=== PATIENT | female | born 1990 | race African-American/Black ===

== ENCOUNTER 2016-10-11 17:30 | Emergency (ER) | payer SELFPAY ==
[~2016-10-11] VITALS: Ht 157.5 cm; Wt 65.0 kg
[2016-10-11 17:32] VITALS: BP 111/75; PULSE 74; RESP 16; TEMP 98; O2SAT 100
[2016-10-11] MEDS ORDERED: ONDANSETRON ODT 4 MG TAB PO/SL ONE (18:00)
--- NOTE | 2016-10-11 18:00 | PD ---
HPI Chief Complaint: GI Complaint Time Seen by Provider: 17:57 Travel History International Travel<30 days: No Contact w/Intl Traveler<30days: No Traveled to known affect area: No History of Present Illness HPI Patient is a 26-year-old female presenting to the emergency department for evaluation of nausea, vomiting, diarrhea. Patient states her symptoms started yesterday, she denies any fever, chills, abdominal pain, chest pain, headache, nasal congestion. She states that she has vomited 4 times today and has had 2 loose bowel movements. Additionally patient states that her last menstrual cycle was at the end of April. Patient was on Depo-Provera until March. From March to April she had fairly consistent menstrual cycle and then she has not had one since that time. Patient has been sexually active, there is a chance that she could be . Patient denies any sick contacts. PFSH Past Medical History Medical History: Denies Significant Hx ?: Unknown LMP: 05/2016 : 5 Para: 4 Past Surgical History Surgical History: No Previous Surgery Social History Alcohol Use: No Tobacco Use: Yes Substance Use: No Allergies-Medications (Allergen,Severity, Reaction): Coded Allergies: No Known Allergies (Unverified , 10/11/16) Reported Meds & Prescriptions Reported Meds & Active Scripts Active Plus Iron 29-1 mg ( Vit-Iron Carbonyl) 1 Tab Tab 1 Tab PO DAILY Keflex (Cephalexin) 500 Mg Cap 500 Mg PO Q6H 7 Days Review of Systems Except as stated in HPI: all other systems reviewed are Neg Gastrointestinal: Positive: Nausea, Vomiting, Diarrhea Physical Exam Narrative GENERAL: Well-appearing, well-developed, alert female. Resting comfortably in no acute distress. SKIN: Warm and dry. HEAD: Atraumatic. Normocephalic. EYES: Pupils equal and round. No scleral icterus. No injection or drainage. ENT: No nasal bleeding or discharge. Mucous membranes pink and moist. NECK: Trachea midline. No JVD. CARDIOVASCULAR: Regular rate and rhythm. No murmur appreciated. RESPIRATORY: No accessory muscle use. Clear to auscultation. Breath sounds equal bilaterally. GASTROINTESTINAL: Abdomen soft, non-tender, nondistended. Hepatic and splenic margins not palpable. Positive bowel sounds, no rebound, no guarding. MUSCULOSKELETAL: No obvious deformities. No clubbing. No cyanosis. No edema. NEUROLOGICAL: Awake and alert. No obvious cranial nerve deficits. Motor grossly within normal limits. Normal speech. PSYCHIATRIC: Appropriate mood and affect; insight and judgment normal. Data Data Last Documented VS Vital Signs Date Time Temp Pulse Resp B/P Pulse Ox O2 Delivery O2 Flow Rate FiO2 10/11/16 17:32 98.0 74 16 111/75 100 Orders Complete Blood Count With Diff (10/11/16 17:56) Comprehensive Metabolic Panel (10/11/16 17:56) Urinalysis - C+S If Indicated (10/11/16 17:56) Lipase (10/11/16 17:56) Ondansetron Odt (Zofran Odt) (10/11/16 18:00) Ed Urine Pregnancytest Poc (10/11/16 17:56) Beta Hcg (Quant/Titer) (10/11/16 18:00) Urine Culture (10/11/16 18:00) Labs Laboratory Tests Test 10/11/16 18:00 White Blood Count 7.4 TH/MM3 Red Blood Count 4.28 MIL/MM3 Hemoglobin 10.0 GM/DL Hematocrit 31.3 % Mean Corpuscular Volume 73.0 FL Mean Corpuscular Hemoglobin 23.4 PG Mean Corpuscular Hemoglobin 32.1 % Concent Red Cell Distribution Width 19.2 % Platelet Count 196 TH/MM3 Mean Platelet Volume 9.1 FL Neutrophils (%) (Auto) 56.9 % Lymphocytes (%) (Auto) 30.0 % Monocytes (%) (Auto) 11.0 % Eosinophils (%) (Auto) 1.8 % Basophils (%) (Auto) 0.3 % Neutrophils # (Auto) 4.2 TH/MM3 Lymphocytes # (Auto) 2.2 TH/MM3 Monocytes # (Auto) 0.8 TH/MM3 Eosinophils # (Auto) 0.1 TH/MM3 Basophils # (Auto) 0.0 TH/MM3 CBC Comment AUTO DIFF Differential Comment AUTO DIFF CONFIRMED Platelet Estimate NORMAL Platelet Morphology Comment NORMAL Ovalocytes 1+ Urine Color YELLOW Urine Turbidity HAZY Urine pH 7.0 Urine Specific [place] 1.021 Urine Protein TRACE mg/dL Urine Glucose (UA) NEG mg/dL Urine Ketones NEG mg/dL Urine Occult Blood NEG Urine Nitrite NEG Urine Bilirubin NEG Urine Urobilinogen LESS THAN 2.0 MG/DL Urine Leukocyte Esterase MOD Urine RBC 2 /hpf Urine WBC 20 /hpf Urine Squamous Epithelial 3 /hpf Cells Urine Bacteria OCC /hpf Urine Mucus MOD /lpf Microscopic Urinalysis Comment CULTURE INDICATED Sodium Level 138 MEQ/L Potassium Level 3.6 MEQ/L Chloride Level 106 MEQ/L Carbon Dioxide Level 24.4 MEQ/L Anion Gap 8 MEQ/L Blood Urea Nitrogen 7 MG/DL Creatinine 0.54 MG/DL Estimat Glomerular Filtration 168 ML/MIN Rate Random Glucose 84 MG/DL Calcium Level 8.5 MG/DL Total Bilirubin 0.2 MG/DL Aspartate Amino Transf 13 U/L (AST/SGOT) Alanine Aminotransferase 13 U/L (ALT/SGPT) Alkaline Phosphatase 74 U/L Total Protein 6.7 GM/DL Albumin 2.8 GM/DL Lipase 192 U/L [facility] Medical Decision Making Medical Screen Exam Complete: Yes Emergency Medical Condition: Yes Interpretation(s) Vital Signs Date Time Temp Pulse Resp B/P Pulse Ox O2 Delivery O2 Flow Rate FiO2 10/11/16 17:32 98.0 74 16 111/75 100 Differential Diagnosis Gastroenteritis versus versus malingering versus obstruction versus other Narrative Course Patient is a 26-year-old female presenting to the emergency department for evaluation of nausea and vomiting. Patient to loose bowel movements today. Patient reported not having a menstrual cycle since April. A [id number] test was positive, hCG level, chemistry, CBC, UA ordered. Bedside ultrasound shows an intrauterine with heart tones and movement. Fetus appears to be greater than 12 weeks in gestation, hCG level is still pending. Patient has not had any further nausea or vomiting while in the emergency department after administration of Zofran. Patient has tolerated by mouth challenge. Discussed with on-call OB. Patient needs to follow up with [facility] as outpatient for routine care. Patient was encouraged to return to emergency department for any new or worsening symptoms, she was encouraged to take vitamins. Patient verbalized understanding of instructions. She is stable for discharge. 2039-that the machine that runs the hCG test is down, there is an indeterminate time that I will be this way. Patient be discharged home, she is encouraged to follow up with medical records or return to emergency department to obtain her hCG results. Initially patient was encouraged to come back to emergency department any new or worsening symptoms. Patient is stable for discharge. Diagnosis Primary Impression: Urinary tract infection Qualified Code: N39.0 - Urinary tract infection without hematuria, site unspecified Additional Impressions: Intrauterine Nausea and vomiting during Referrals: [facility] 1 week Patient Instructions: General Instructions, Nausea and Vomiting in ( ED), Urinary Tract Infection in (ED) Additional Instructions: You need to establish with an entry level account executive for routine care Take vitamins as prescribed Complete full course of antibiotics as prescribed Maintain adequate fluid intake Return to emergency department for any new or worsening symptoms Med/Other Pt SpecificInfo: Prescription(s) given Scripts Vit-Iron Carbonyl ( Plus Iron 29-1 mg)1 Tab Tab1 Tab PO DAILY #30 TAB Ref 0 Prov:Светлана Zapata 10/11/16 Cephalexin (Keflex)500 Mg Kxs176 Mg PO Q6H 7 Days Ref 0 Prov:Светлана Zapata 10/11/16 Disposition: 01 DISCHARGE HOME Condition: Stable Светлана Zapata Oct 11, 2016 18:00
[2016-10-11 18:22] LABS: AUTOMATED NEUTROPHIL # 4.2 TH/MM3 (1.8-7.7); BASOPHIL % 0.3 % (0.0-2.0); EOSINOPHIL # 0.1 TH/MM3 (0-0.4); EOSINOPHIL % 1.8 % (0.0-4.0); HEMATOCRIT 31.3 % (35.0-46.0); LYMPHOCYTE # 2.2 TH/MM3 (1.0-4.8); MEAN CORPUSCULAR HEMOGLOBIN 23.4 PG (27.0-34.0); MEAN CORPUSCULAR HGB CONC 32.1 % (32.0-36.0); NEUT % 56.9 % (16.0-70.0); PLATELET COUNT 196 TH/MM3 (150-450); RED BLOOD COUNT 4.28 MIL/MM3 (4.00-5.30); RED CELL DISTRIBUTION WIDTH 19.2 % (11.6-17.2); WHITE BLOOD COUNT 7.4 TH/MM3 (4.0-11.0)
[2016-10-11 18:37] LABS: BACTERIA, URINE OCC /hpf; BLOOD, URINE NEG (NEG); COMMENT (UR) CULTURE INDICATED; CULTURE IF INDICATED CULTURE INDICATED; GLUCOSE,URINE NEG (NEG); KETONE, URINE NEG (NEG); MUCUS URINE MOD /lpf (OCC); NITRITE,URINE NEG (NEG); SQUAMOUS EPITHELIAL CELL URINE 3 /hpf (0-5); URINE COLOR YELLOW (YELLW/STRAW)
[2016-10-11 18:39] LABS: HEMO FLAGS AUTO DIFF
[2016-10-11 18:40] LABS: ANION GAP 8 MEQ/L (5-15); AST (GOT) 13 U/L (15-37); BICARBONATE 24.4 MEQ/L (21.0-32.0); BLOOD UREA NITROGEN 7 MG/DL (7-18); CHLORIDE 106 MEQ/L (98-107); GLOMERULAR FILTRATION RATE 168 ML/MIN (>89); POTASSIUM 3.6 MEQ/L (3.5-5.1); SODIUM (NA) 138 MEQ/L (136-145)
[2016-10-11 18:43] LABS: ALKALINE PHOSPHATASE 74 U/L (45-117); ALT (GPT) 13 U/L (10-53); TOTAL BILIRUBIN ADULT 0.2 MG/DL (0.2-1.0)
[2016-10-11 19:01] LABS: OVALOCYTES 1+ (NORMAL); PLATELET ESTIMATE SMEAR NORMAL (NORMAL); PLATELET MORPHOLOGY NORMAL (NORMAL); SCAN/DIFF AUTO DIFF CONFIRMED
[2016-10-11] MEDS ORDERED: CEPH-460 PO (19:07)
[2016-10-11] MEDS ORDERED: PREN29TA PO (19:07)
[2016-10-11 22:25] LABS: BETA HCG QUANT 14063 MIU/ML (0-5)
== END 2016-10-11 21:09 | disposition home or self-care (01) ==
LOC: NETRI 17:30 → NEPB 21:09
DX: O23.40 Unspecified infection of urinary tract in pregnancy, unspecified trimester (principal); O21.0 Mild hyperemesis gravidarum; B96.1 Klebsiella pneumoniae [K. pneumoniae] as the cause of diseases classified elsewhere
CPT/HCPCS: 80053; 81001; 83690; 84702; 84703; 85025; 87077; 87086; 87186; 99284

== ENCOUNTER 2017-08-02 10:05 | Emergency (ER) | payer OTHER ==
[~2017-08-02] VITALS: Ht 157.5 cm; Wt 72.0 kg
[~2017-08-02 10:05] MED LIST: CEPH-460 PO; PREN29TA PO
[2017-08-02 10:07] VITALS: BP 117/66; PULSE 88; RESP 14; TEMP 98.4; O2SAT 98
[2017-08-02] MEDS ORDERED: ACETAMINOPHEN 325 MG TAB PO ONE (10:30)
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
[2017-08-02] MEDS ORDERED: DEXAMETHASONE SOD PHOS 20 MG/5 ML VIAL IM ONE (11:15)
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
[2017-08-02] MEDS ORDERED: DEXAMETHASONE SOD PHOS 20 MG/5 ML VIAL ONE (11:36)
[2017-08-02 11:40] VITALS: RESP 16
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
[2017-08-02 13:40] VITALS: BP 108/77; TEMP 97.8
== END 2017-08-02 13:40 | disposition home or self-care (01) ==
LOC: NEPD 10:05
DX: S16.1XXA Strain of muscle, fascia and tendon at neck level, initial encounter (principal); M54.6 Pain in thoracic spine; R51 Headache; Z72.0 Tobacco use; V49.49XA Driver injured in collision with other motor vehicles in traffic accident, initial encounter
CPT/HCPCS: 70450; 72072; 72125; 84703; 96372; 99285; J1100

== ENCOUNTER 2018-01-30 02:36 | Emergency (ER) | payer SELFPAY ==
[~2018-01-30] VITALS: Ht 157.5 cm; Wt 80.0 kg
[2018-01-30 02:51] VITALS: BP 123/64; PULSE 95; RESP 18; TEMP 98.7; O2SAT 100
[2018-01-30] MEDS ORDERED: SODIUM CHLORIDE 0.9% FLUSH 10 ML FLUSH IV FLUSH PRN (04:00)
[2018-01-30] MEDS ORDERED: SODIUM CHLOR 0.9% 1000 ML INJ 1,000 ML IV SCH ×2 (04:00→09:30)
[2018-01-30 04:28] LABS: AUTOMATED NEUTROPHIL # 5.9 TH/MM3 (1.8-7.7); BASOPHIL # 0.1 TH/MM3 (0-0.2); BASOPHIL % 1.4 % (0.0-2.0); EOSINOPHIL # 0.2 TH/MM3 (0-0.4); EOSINOPHIL % 2.9 % (0.0-4.0); HEMATOCRIT 32.3 % (35.0-46.0); HEMOGLOBIN 10.7 GM/DL (11.6-15.3); LYMPH % 16.1 % (9.0-44.0); LYMPHOCYTE # 1.4 TH/MM3 (1.0-4.8); MEAN CELL VOLUME 80.5 FL (80.0-100.0); MEAN CORPUSCULAR HEMOGLOBIN 26.5 PG (27.0-34.0); MEAN PLATELET VOLUME 8.9 FL (7.0-11.0); MONO % 9.5 % (0.0-8.0); MONOCYTE # 0.8 TH/MM3 (0-0.9); NEUT % 70.1 % (16.0-70.0); PLATELET COUNT 248 TH/MM3 (150-450); RED BLOOD COUNT 4.02 MIL/MM3 (4.00-5.30); RED CELL DISTRIBUTION WIDTH 14.2 % (11.6-17.2); WHITE BLOOD COUNT 8.4 TH/MM3 (4.0-11.0)
[2018-01-30 04:37] LABS: ALBUMIN 3.9 GM/DL (3.4-5.0); AST (GOT) 17 U/L (15-37); BICARBONATE 29.7 MEQ/L (21.0-32.0); BLOOD UREA NITROGEN 13 MG/DL (7-18); CALCIUM 8.8 MG/DL (8.5-10.1); CHLORIDE 105 MEQ/L (98-107); CREATININE 0.63 MG/DL (0.50-1.00); GLOMERULAR FILTRATION RATE 138 ML/MIN (>89); GLUCOSE,RANDOM 97 MG/DL (74-106); SODIUM (NA) 141 MEQ/L (136-145)
[2018-01-30 04:38] LABS: ALT (GPT) 21 U/L (10-53); PROTHROMBIN TIME - PATIENT 10.5 SEC (9.8-11.6)
[2018-01-30 04:40] LABS: ALKALINE PHOSPHATASE 110 U/L (45-117); TOTAL BILIRUBIN ADULT 0.3 MG/DL (0.2-1.0); TOTAL PROTEIN 7.4 GM/DL (6.4-8.2)
--- NOTE | 2018-01-30 04:55 | PD ---
HPI Chief Complaint: Abdominal Pain Time Seen by Provider: 04:16 Travel History International Travel<30 days: No Contact w/Intl Traveler<30days: No Traveled to known affect area: No History of Present Illness HPI Patient is a 28-year-old female who presents the emergency room with complaints of abdominal pain. Patient reports that for the past 3 days, she has had left lower quadrant abdominal pain. Patient reports that she just finished her menstrual cycle which lasted 5 days. Reports that she has had continuous left lower quadrant pain, patient reports concern for a possible ovarian cysts as she has had this in the past. Patient denies any vaginal discharge, denies any fever chills, denies any nausea or vomiting. PFSH Past Medical History Anemia: Yes Diminished Hearing: No Genitourinary: Yes (uti) Reproductive: Yes (ovarian cyst) Tetanus Vaccination: Unknown Influenza Vaccination: No ?: Not LMP: 01/26/2018 : 6 Para: 6 Past Surgical History Surgical History: No Previous Surgery Social History Alcohol Use: Yes (ocassionally) Tobacco Use: Yes (10 cigarrettes per week) Substance Use: No Allergies-Medications (Allergen,Severity, Reaction): Coded Allergies: No Known Allergies (Unverified Adverse Reaction, Unknown, 01/30/18) Reported Meds & Prescriptions Reported Meds & Active Scripts Active No Active Prescriptions or Reported Medications Review of Systems General / Constitutional: No: Fever Eyes: No: Visual changes HENT: No: Headaches Cardiovascular: No: Chest Pain or Discomfort Respiratory: No: Shortness of Breath Gastrointestinal: Positive: Abdominal Pain, No: Nausea, Vomiting, Diarrhea Genitourinary: No: Urgency, Frequency, Dysuria, Discharge, Vaginal Bleeding Musculoskeletal: No: Pain Skin: No Rash Neurologic: No: Weakness Psychiatric: No: Depression Endocrine: No: Polydipsia Hematologic/Lymphatic: No: Easy Bruising Physical Exam Narrative GENERAL: Mild distress SKIN: Focused skin assessment warm/dry. HEAD: Atraumatic. Normocephalic. EYES: Pupils equal and round. No scleral icterus. No injection or drainage. ENT: No nasal bleeding or discharge. Mucous membranes pink and moist. NECK: Trachea midline. No JVD. CARDIOVASCULAR: Regular rate and rhythm. No murmur appreciated. RESPIRATORY: No accessory muscle use. Clear to auscultation. Breath sounds equal bilaterally. GASTROINTESTINAL: Abdomen soft, mild tenderness to llq with no rebound or guarding on exam, nondistended. Hepatic and splenic margins not palpable. MUSCULOSKELETAL: No obvious deformities. No clubbing. No cyanosis. No edema. NEUROLOGICAL: Awake and alert. No obvious cranial nerve deficits. Motor grossly within normal limits. Normal speech. PSYCHIATRIC: Appropriate mood and affect; insight and judgment normal. Data Data Last Documented VS Vital Signs Date Time Temp Pulse Resp B/P (MAP) Pulse Ox O2 Delivery O2 Flow Rate FiO2 01/30/18 02:51 98.7 95 18 123/64 (83) 100 Orders Orders Complete Blood Count With Diff (01/30/18 04:00) Comprehensive Metabolic Panel (01/30/18 04:00) Lipase (01/30/18 04:00) Prothrombin Time / Inr (Pt) (01/30/18 04:00) Act Partial Throm Time (Ptt) (01/30/18 04:00) Urinalysis - C+S If Indicated (01/30/18 04:00) Iv Access Insert/Monitor (01/30/18 04:00) Ecg Monitoring (01/30/18 04:00) Oximetry (01/30/18 04:00) Sodium Chlor 0.9% 1000 Ml Inj (Ns 1000 M (01/30/18 04:00) Sodium Chloride 0.9% Flush (Ns Flush) (01/30/18 04:00) Ed Urine Pregnancytest Poc (01/30/18 04:00) Us Pelvis (Ques Pr/Ect)W Trans (01/30/18 ) Beta Hcg (Quant/Titer) (01/30/18 04:12) Complete Rh (01/30/18 06:26) Type And Screen (01/30/18 06:26) Labs Laboratory Tests Test 01/30/18 04:12 01/30/18 06:31 White Blood Count 8.4 TH/MM3 Red Blood Count 4.02 MIL/MM3 Hemoglobin 10.7 GM/DL Hematocrit 32.3 % Mean Corpuscular Volume 80.5 FL Mean Corpuscular Hemoglobin 26.5 PG Mean Corpuscular Hemoglobin Concent 33.0 % Red Cell Distribution Width 14.2 % Platelet Count 248 TH/MM3 Mean Platelet Volume 8.9 FL Neutrophils (%) (Auto) 70.1 % Lymphocytes (%) (Auto) 16.1 % Monocytes (%) (Auto) 9.5 % Eosinophils (%) (Auto) 2.9 % Basophils (%) (Auto) 1.4 % Neutrophils # (Auto) 5.9 TH/MM3 Lymphocytes # (Auto) 1.4 TH/MM3 Monocytes # (Auto) 0.8 TH/MM3 Eosinophils # (Auto) 0.2 TH/MM3 Basophils # (Auto) 0.1 TH/MM3 CBC Comment DIFF FINAL Differential Comment Prothrombin Time 10.5 SEC Prothromb Time International Ratio 1.0 RATIO Activated Partial Thromboplast Time 26.3 SEC Blood Urea Nitrogen 13 MG/DL Creatinine 0.63 MG/DL Random Glucose 97 MG/DL Total Protein 7.4 GM/DL Albumin 3.9 GM/DL Calcium Level 8.8 MG/DL Alkaline Phosphatase 110 U/L Aspartate Amino Transf (AST/SGOT) 17 U/L Alanine Aminotransferase (ALT/SGPT) 21 U/L Total Bilirubin 0.3 MG/DL Sodium Level 141 MEQ/L Potassium Level 3.5 MEQ/L Chloride Level 105 MEQ/L Carbon Dioxide Level 29.7 MEQ/L Anion Gap 6 MEQ/L Estimat Glomerular Filtration Rate 138 ML/MIN Lipase 139 U/L Human Chorionic Gonadotropin, Quant 130 MIU/ML MDM Medical Decision Making Medical Screen Exam Complete: Yes Emergency Medical Condition: Yes Medical Record Reviewed: Yes Interpretation(s) Vital Signs Date Time Temp Pulse Resp B/P (MAP) Pulse Ox O2 Delivery O2 Flow Rate FiO2 01/30/18 02:51 98.7 95 18 123/64 (83) 100 Differential Diagnosis , ectopic , UTI, ovarian cyst, cervicitis Narrative Course During the course of the patients emergency department visit, the patients history, examination, and differential diagnosis were reviewed with the patient. The patient was placed on a case monitor with oximetry and frequent blood pressure monitoring. The patient had an IV access obtained and blood work sent for analysis. The patient was initially provided IV fluids. Patient's urine test was positive -hCG quant was sent. Patient with a positive hCG quant, patient reports that she just completed 5 days of her period, patient unsure how far along she is. I just discussed with patient possibilities of ectopic given her left lower quadrant abdominal pain. A pelvic ultrasound was ordered. The patients laboratory studies were reviewed and remarkable for. Laboratory Tests Test 01/30/18 04:12 White Blood Count 8.4 TH/MM3 (4.0-11.0) Red Blood Count 4.02 MIL/MM3 (4.00-5.30) Hemoglobin 10.7 GM/DL (11.6-15.3) Hematocrit 32.3 % (35.0-46.0) Mean Corpuscular Volume 80.5 FL (80.0-100.0) Mean Corpuscular Hemoglobin 26.5 PG (27.0-34.0) Mean Corpuscular Hemoglobin Concent 33.0 % (32.0-36.0) Red Cell Distribution Width 14.2 % (11.6-17.2) Platelet Count 248 TH/MM3 (150-450) Mean Platelet Volume 8.9 FL (7.0-11.0) Neutrophils (%) (Auto) 70.1 % (16.0-70.0) Lymphocytes (%) (Auto) 16.1 % (9.0-44.0) Monocytes (%) (Auto) 9.5 % (0.0-8.0) Eosinophils (%) (Auto) 2.9 % (0.0-4.0) Basophils (%) (Auto) 1.4 % (0.0-2.0) Neutrophils # (Auto) 5.9 TH/MM3 (1.8-7.7) Lymphocytes # (Auto) 1.4 TH/MM3 (1.0-4.8) Monocytes # (Auto) 0.8 TH/MM3 (0-0.9) Eosinophils # (Auto) 0.2 TH/MM3 (0-0.4) Basophils # (Auto) 0.1 TH/MM3 (0-0.2) CBC Comment DIFF FINAL Differential Comment Prothrombin Time 10.5 SEC (9.8-11.6) Prothromb Time International Ratio 1.0 RATIO Activated Partial Thromboplast Time 26.3 SEC (24.3-30.1) Blood Urea Nitrogen 13 MG/DL (7-18) Creatinine 0.63 MG/DL (0.50-1.00) Random Glucose 97 MG/DL (74-106) Total Protein 7.4 GM/DL (6.4-8.2) Albumin 3.9 GM/DL (3.4-5.0) Calcium Level 8.8 MG/DL (8.5-10.1) Alkaline Phosphatase 110 U/L (45-117) Aspartate Amino Transf (AST/SGOT) 17 U/L (15-37) Alanine Aminotransferase (ALT/SGPT) 21 U/L (10-53) Total Bilirubin 0.3 MG/DL (0.2-1.0) Sodium Level 141 MEQ/L (136-145) Potassium Level 3.5 MEQ/L (3.5-5.1) Chloride Level 105 MEQ/L (98-107) Carbon Dioxide Level 29.7 MEQ/L (21.0-32.0) Anion Gap 6 MEQ/L (5-15) Estimat Glomerular Filtration Rate 138 ML/MIN (>89) Lipase 139 U/L (73-393) Human Chorionic Gonadotropin, Quant 130 MIU/ML (0-5) Patient's hCG quant is 130, discussed my concerns for possible miscarriage given her bleeding, understands need to trend her HCG quant as she could have early and ectopic cannot be ruled out. patient pending pelvic US Patient signed out to care of oncoming physician at change of shift Diagnosis Primary Impression: Miscarriage, threatened, early Patient Instructions: General Instructions Additional Instructions: Please provide patient with a copy of their lab work and studies at discharge* * Please follow up with your primary care doctor in 2-3 days Return to the ER if symptoms worsen or progress Return to the ER as needed Please have your HCG quant repeated in 48 hours Please call your tie buyer first thing in the morning for earliest follow up Scripts No Active Prescriptions or Reported Meds Marybeth Sanford DO Jan 30, 2018 04:55
--- NOTE | 2018-01-30 06:56 | PD ---
Physical Exam Date Seen by Provider: Jan 30, 2018 Time Seen by Provider: 06:55 Narrative The patient is a 28-year-old female who was initially evaluated by the previous physician. Please refer to the initial history, physical, diagnostic evaluation , and treatment modality plan. The patient was signed out at 7 AM with ultrasound and Rh pending for left lower quadrant abdominal pain and with history of ovarian cyst. Data Data Last Documented VS Vital Signs Date Time Temp Pulse Resp B/P (MAP) Pulse Ox O2 Delivery O2 Flow Rate FiO2 01/30/18 07:35 78 16 91/55 (67) 99 Room Air 01/30/18 02:51 98.7 Orders Orders Complete Blood Count With Diff (01/30/18 04:00) Comprehensive Metabolic Panel (01/30/18 04:00) Lipase (01/30/18 04:00) Prothrombin Time / Inr (Pt) (01/30/18 04:00) Act Partial Throm Time (Ptt) (01/30/18 04:00) Urinalysis - C+S If Indicated (01/30/18 04:00) Iv Access Insert/Monitor (01/30/18 04:00) Ecg Monitoring (01/30/18 04:00) Oximetry (01/30/18 04:00) Sodium Chlor 0.9% 1000 Ml Inj (Ns 1000 M (01/30/18 04:00) Sodium Chloride 0.9% Flush (Ns Flush) (01/30/18 04:00) Ed Urine Pregnancytest Poc (01/30/18 04:00) Us Pelvis (Ques Pr/Ect)W Trans (01/30/18 ) Beta Hcg (Quant/Titer) (01/30/18 04:12) Type And Screen (01/30/18 06:26) Urine Culture (01/30/18 06:31) NPO (01/30/18 09:17) Sodium Chlor 0.9% 1000 Ml Inj (Ns 1000 M (01/30/18 09:30) Morphine Inj (Morphine Inj) (01/30/18 10:30) Labs Laboratory Tests Test 01/30/18 04:12 01/30/18 06:31 White Blood Count 8.4 TH/MM3 Red Blood Count 4.02 MIL/MM3 Hemoglobin 10.7 GM/DL Hematocrit 32.3 % Mean Corpuscular Volume 80.5 FL Mean Corpuscular Hemoglobin 26.5 PG Mean Corpuscular Hemoglobin Concent 33.0 % Red Cell Distribution Width 14.2 % Platelet Count 248 TH/MM3 Mean Platelet Volume 8.9 FL Neutrophils (%) (Auto) 70.1 % Lymphocytes (%) (Auto) 16.1 % Monocytes (%) (Auto) 9.5 % Eosinophils (%) (Auto) 2.9 % Basophils (%) (Auto) 1.4 % Neutrophils # (Auto) 5.9 TH/MM3 Lymphocytes # (Auto) 1.4 TH/MM3 Monocytes # (Auto) 0.8 TH/MM3 Eosinophils # (Auto) 0.2 TH/MM3 Basophils # (Auto) 0.1 TH/MM3 CBC Comment DIFF FINAL Differential Comment Prothrombin Time 10.5 SEC Prothromb Time International Ratio 1.0 RATIO Activated Partial Thromboplast Time 26.3 SEC Blood Urea Nitrogen 13 MG/DL Creatinine 0.63 MG/DL Random Glucose 97 MG/DL Total Protein 7.4 GM/DL Albumin 3.9 GM/DL Calcium Level 8.8 MG/DL Alkaline Phosphatase 110 U/L Aspartate Amino Transf (AST/SGOT) 17 U/L Alanine Aminotransferase (ALT/SGPT) 21 U/L Total Bilirubin 0.3 MG/DL Sodium Level 141 MEQ/L Potassium Level 3.5 MEQ/L Chloride Level 105 MEQ/L Carbon Dioxide Level 29.7 MEQ/L Anion Gap 6 MEQ/L Estimat Glomerular Filtration Rate 138 ML/MIN Lipase 139 U/L Human Chorionic Gonadotropin, Quant 130 MIU/ML Urine Color YELLOW Urine Turbidity HAZY Urine pH 7.0 Urine Specific [place] 1.029 Urine Protein TRACE mg/dL Urine Glucose (UA) NEG mg/dL Urine Ketones NEG mg/dL Urine Occult Blood SMALL Urine Nitrite NEG Urine Bilirubin NEG Urine Urobilinogen 2.0 MG/DL Urine Leukocyte Esterase TRACE Urine RBC 5 /hpf Urine WBC 8 /hpf Urine Squamous Epithelial Cells <1 /hpf Urine Bacteria MANY /hpf Urine Mucus FEW /lpf Microscopic Urinalysis Comment CULTURE INDICATED MDM Medical Record Reviewed: Yes Supervised Visit with GEORGINA: No Interpretation(s) Vital Signs Date Time Temp Pulse Resp B/P (MAP) Pulse Ox O2 Delivery O2 Flow Rate FiO2 01/30/18 07:35 78 16 91/55 (67) 99 Room Air 01/30/18 02:51 98.7 95 18 123/64 (83) 100 Laboratory Tests Test 01/30/18 04:12 01/30/18 06:31 White Blood Count 8.4 TH/MM3 Red Blood Count 4.02 MIL/MM3 Hemoglobin 10.7 GM/DL Hematocrit 32.3 % Mean Corpuscular Volume 80.5 FL Mean Corpuscular Hemoglobin 26.5 PG Mean Corpuscular Hemoglobin Concent 33.0 % Red Cell Distribution Width 14.2 % Platelet Count 248 TH/MM3 Mean Platelet Volume 8.9 FL Neutrophils (%) (Auto) 70.1 % Lymphocytes (%) (Auto) 16.1 % Monocytes (%) (Auto) 9.5 % Eosinophils (%) (Auto) 2.9 % Basophils (%) (Auto) 1.4 % Neutrophils # (Auto) 5.9 TH/MM3 Lymphocytes # (Auto) 1.4 TH/MM3 Monocytes # (Auto) 0.8 TH/MM3 Eosinophils # (Auto) 0.2 TH/MM3 Basophils # (Auto) 0.1 TH/MM3 CBC Comment DIFF FINAL Differential Comment Prothrombin Time 10.5 SEC Prothromb Time International Ratio 1.0 RATIO Activated Partial Thromboplast Time 26.3 SEC Blood Urea Nitrogen 13 MG/DL Creatinine 0.63 MG/DL Random Glucose 97 MG/DL Total Protein 7.4 GM/DL Albumin 3.9 GM/DL Calcium Level 8.8 MG/DL Alkaline Phosphatase 110 U/L Aspartate Amino Transf (AST/SGOT) 17 U/L Alanine Aminotransferase (ALT/SGPT) 21 U/L Total Bilirubin 0.3 MG/DL Sodium Level 141 MEQ/L Potassium Level 3.5 MEQ/L Chloride Level 105 MEQ/L Carbon Dioxide Level 29.7 MEQ/L Anion Gap 6 MEQ/L Estimat Glomerular Filtration Rate 138 ML/MIN Lipase 139 U/L Human Chorionic Gonadotropin, Quant 130 MIU/ML Urine Color YELLOW Urine Turbidity HAZY Urine pH 7.0 Urine Specific [place] 1.029 Urine Protein TRACE mg/dL Urine Glucose (UA) NEG mg/dL Urine Ketones NEG mg/dL Urine Occult Blood SMALL Urine Nitrite NEG Urine Bilirubin NEG Urine Urobilinogen 2.0 MG/DL Urine Leukocyte Esterase TRACE Urine RBC 5 /hpf Urine WBC 8 /hpf Urine Squamous Epithelial Cells <1 /hpf Urine Bacteria MANY /hpf Urine Mucus FEW /lpf Microscopic Urinalysis Comment CULTURE INDICATED Last Impressions Pelvis Ultrasound 01/30/18 0000 Signed Impressions: CONCLUSION: 1. No evidence of intrauterine . 2. Complex cystic mass in the left adnexa associated with complex free fluid w hich may represent hemorrhage. Ectopic with ruptured versus ruptured ovarian cyst needs to be considered. Differential Diagnosis Differential diagnosis includes ectopic , threatened AB, incomplete AB , PID, cervicitis, UTI, ovarian cyst. Narrative Course The patient is a 28-year-old female who was initially evaluated by the previous physician. Please refer to the initial history, physical, diagnostic evaluation , and treatment modality plan. The patient was signed out at 7 AM with ultrasound and Rh pending for left lower quadrant abdominal pain with positive beta-hCG and history of ovarian cyst. The patient's blood type is O+, therefore , no indication for RhoGam. Ultrasound reveals a cystic structure in the left adnexa with possible hemorrhage, therefore, the on-call OB hospitalist was called at 9:15 AM. The patient will be evaluated by gynecology, the patient will be kept n.p.o., the patient was placed on IV fluids. I did discuss the findings with the patient at bedside. The patient was evaluated by the commercial administrator, Dr. Vera, bedside who performed an exam. Dr. Vera had a long discussion with the patient regarding possibilities including ectopic versus ruptured ovarian cyst and early . Dr.'s Vera states he is going to discharge the patient home and she is advised to return on Monday for beta-hCG and repeat ultrasound. I also had a long discussion with the patient stating that she needs to return immediately for any presyncopal symptoms, increasing bleeding, increasing abdominal pain. She is advised bed rest, no sexual activity, and will be provided a work excuse for Monday through Monday. Physician Communication Physician Communication A call was placed to the on-call OB hospitalist, I discussed the patient with the OB hospitalist at 9:15 AM. Diagnosis Primary Impression: Vaginal bleeding in Additional Impression: Abdominal pain in Qualified Codes: O26.891 - Other specified related conditions, first trimester; R10.9 - Unspecified abdominal pain Admitting Information Admitting Physician Requests: Admit Patient Instructions: General Instructions Additional Instruction: Please provide patient with a copy of their lab work and studies at discharge* * Please follow up with your primary care doctor in 2-3 days Return to the ER if symptoms worsen or progress Return to the ER as needed Please have your HCG quant repeated in 48 hours Please call your metal cutter first thing in the morning for earliest follow up Med/Other Pt SpecificInfo: No Change to Meds Scripts No Active Prescriptions or Reported Meds Disposition: 01 DISCHARGE HOME Condition: Stable Sina Cavanaugh MD Jan 30, 2018 06:56
[2018-01-30 07:02] LABS: BACTERIA, URINE MANY /hpf; BILIRUBIN, URINE NEG (NEG); BLOOD, URINE SMALL (NEG); GLUCOSE,URINE NEG (NEG); KETONE, URINE NEG (NEG); MUCUS URINE FEW /lpf (OCC); NITRITE,URINE NEG (NEG); SQUAMOUS EPITHELIAL CELL URINE <1 /hpf (0-5); URINE COLOR YELLOW (YELLW/STRAW); URINE LEUKOCYTE ESTERASE TRACE (NEG)
[2018-01-30 07:35] VITALS: BP 91/55; PULSE 78; RESP 16; O2SAT 99
--- NOTE | 2018-01-30 09:12 | RADRPT ---
EXAM DATE: 01/30/2018 8:46 AM EDT AGE/SEX: 28 years / Female INDICATIONS: Ectopic. Left lower quadrant pain. CLINICAL DATA: This is the patient's initial encounter. Patient reports that signs and symptoms have been present for 3 days and indicates a pain score of 10/10. MEDICAL/SURGICAL HISTORY: . Anemia. Ovarian cysts. UTI. None. COMPARISON: No prior exams available for comparison. MEASUREMENTS: Uterus:__9.5 x 5.6 x 4.5 cm Endometrial Stripe:__3 mm Right Ovary:__ 2.4 x 2.2 x 3.1 cm Left Ovary:__ 2.7 x 1.7 x 2.6 cm FINDINGS: Uterus: The myometrium has homogeneous echotexture without mass. There is no evidence of intrauteri ne gestational sac or fetus. Right Ovary: Normal in appearance with small follicular cysts. Left Ovary: A complex cystic areas identified in the left adnexa adjacent to the ovary. It measures 2.6 x 2.7 x 1.4 cm in size. Other: Complex free fluid is identified in the cul-de-sac and in both adnexal regions. CONCLUSION: 1. No evidence of intrauterine . 2. Complex cystic mass in the left adnexa associated with complex free fluid which may represent hem orrhage. Ectopic with ruptured versus ruptured ovarian cyst needs to be considered. Electronically signed by: Justin Arceo MD 01/30/2018 9:10 AM EDT
[2018-01-30] MEDS ORDERED: MORPHINE SULFATE 4 MG/ML INJ IV PUSH ONE (10:30)
--- NOTE | 2018-01-30 11:10 | PD.CONS ---
HPI Chief Complaint Abdominal pain and vaginal bleeding Date Seen: Jan 30, 2018 Travel History International Travel<30 Days: No Contact w/Intl Traveler<30Days: No Known Affected Area: No History of Present Illness HPI Patient is a 28-year-old A1 that presents to the [place] of lower abdominal pain and vaginal bleeding. Patient states that abdominal pain started 3 days ago and gradually increased until he became a 10/10 yesterday. She describes the pain as sharp, squeezing and constant that is worse in her left lower abdomen. Patient patient also started experiencing vaginal bleeding on the . She thought the bleeding was had monthly period that was supposed to begin on the . She denies fever/chills, n/v, dysuria, and vaginal discharge. History Past Medical History Narrative Medical Anemia Obstetric History Obstetric History Pregnancies with vaginal and full-term with no complications. 5 of her children were born at [facility] in [place]. Her last child was born on February 23, 2017. She was started on Depo-Provera on February 25, 2017 but was discontinued in May prolonged periods. She was receiving the Depo-Provera shots at [facility] because she moved from [place] with her [facility] provider was located. 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 Her children live with her mother who adopted them Alcohol Use: Yes (occassionally) Tobacco Use: No Substance Abuse: No Allergies-Medications (Allergen,Severity, Reaction): Coded Allergies: No Known Allergies (Unverified Adverse Reaction, Unknown, 01/30/18) Home Meds No Active Prescriptions or Reported Meds Review of Systems General / Constitutional: No: Fever, Chills Eyes: No: Blurred Vision HENT: Headaches Cardiovascular: No: Chest Pain or Discomfort Respiratory: No: Short of Breath Gastrointestinal: Abdominal Pain, No: Nausea (one time), Vomiting, Diarrhea Genitourinary: Vaginal Bleeding, No: Dysuria Skin: No Rash Physical Exam Vital Signs Date Time Temp Pulse Resp B/P (MAP) Pulse Ox O2 Delivery O2 Flow Rate FiO2 01/30/18 07:35 78 16 91/55 (67) 99 Room Air 01/30/18 02:51 98.7 95 18 123/64 (83) 100 Narrative GENERAL: Well-nourished, well-developed patient. SKIN: Warm and dry. HEAD: Normocephalic and atraumatic. EYES: No scleral icterus. No injection or drainage. ENT: No nasal drainage noted. Mucous membranes pink. Airway patent. NECK: Supple, trachea midline. No JVD. CARDIOVASCULAR: Regular rate and rhythm without murmurs, gallops, or rubs. RESPIRATORY: Breath sounds equal bilaterally. No accessory muscle use. ABDOMEN/GI: Abdomen soft, tender to palpation in the LLQ and middle lower quadrant, moderate guarding, minimal rebound tenderness GENITOURINARY: External Genitalia: intact and normal in appearance PELVIC EXAM: Normally developed genitalia with no external lesions or eruptions. Speculum exam revealed small amount of active bleeding from the cervical os. OS patent. Minimal cervical motion tenderness. No cervical friability. No cystocele. No foul smell. EXTREMITIES: No cyanosis or edema. BACK: Nontender without obvious deformity. No CVA tenderness. NEUROLOGICAL: Awake and alert. Motor and sensory grossly within normal limits. Five out of 5 muscle strength in all muscle groups. Normal speech. Data Data Vital Signs Reviewed: Yes Orders Orders Complete Blood Count With Diff (01/30/18 04:00) Comprehensive Metabolic Panel (01/30/18 04:00) Lipase (01/30/18 04:00) Prothrombin Time / Inr (Pt) (01/30/18 04:00) Act Partial Throm Time (Ptt) (01/30/18 04:00) Urinalysis - C+S If Indicated (01/30/18 04:00) Iv Access Insert/Monitor (01/30/18 04:00) Ecg Monitoring (01/30/18 04:00) Oximetry (01/30/18 04:00) Sodium Chlor 0.9% 1000 Ml Inj (Ns 1000 M (01/30/18 04:00) Sodium Chloride 0.9% Flush (Ns Flush) (01/30/18 04:00) Ed Urine Pregnancytest Poc (01/30/18 04:00) Us Pelvis (Ques Pr/Ect)W Trans (01/30/18 ) Beta Hcg (Quant/Titer) (01/30/18 04:12) Type And Screen (01/30/18 06:26) Urine Culture (01/30/18 06:31) NPO (01/30/18 09:17) Sodium Chlor 0.9% 1000 Ml Inj (Ns 1000 M (01/30/18 09:30) Morphine Inj (Morphine Inj) (01/30/18 10:30) Ed Discharge Order (01/30/18 10:59) Labs Laboratory Tests Test 01/30/18 04:12 01/30/18 06:31 White Blood Count 8.4 Red Blood Count 4.02 Hemoglobin 10.7 Hematocrit 32.3 Mean Corpuscular Volume 80.5 Mean Corpuscular Hemoglobin 26.5 Mean Corpuscular Hemoglobin Concent 33.0 Red Cell Distribution Width 14.2 Platelet Count 248 Mean Platelet Volume 8.9 Neutrophils (%) (Auto) 70.1 Lymphocytes (%) (Auto) 16.1 Monocytes (%) (Auto) 9.5 Eosinophils (%) (Auto) 2.9 Basophils (%) (Auto) 1.4 Neutrophils # (Auto) 5.9 Lymphocytes # (Auto) 1.4 Monocytes # (Auto) 0.8 Eosinophils # (Auto) 0.2 Basophils # (Auto) 0.1 CBC Comment DIFF FINAL Differential Comment Prothrombin Time 10.5 Prothromb Time International Ratio 1.0 Activated Partial Thromboplast Time 26.3 Blood Urea Nitrogen 13 Creatinine 0.63 Random Glucose 97 Total Protein 7.4 Albumin 3.9 Calcium Level 8.8 Alkaline Phosphatase 110 Aspartate Amino Transf (AST/SGOT) 17 Alanine Aminotransferase (ALT/SGPT) 21 Total Bilirubin 0.3 Sodium Level 141 Potassium Level 3.5 Chloride Level 105 Carbon Dioxide Level 29.7 Anion Gap 6 Estimat Glomerular Filtration Rate 138 Lipase 139 Human Chorionic Gonadotropin, Quant 130 Urine Color YELLOW Urine Turbidity HAZY Urine pH 7.0 Urine Specific Simla 1.029 Urine Protein TRACE Urine Glucose (UA) NEG Urine Ketones NEG Urine Occult Blood SMALL Urine Nitrite NEG Urine Bilirubin NEG Urine Urobilinogen 2.0 Urine Leukocyte Esterase TRACE Urine RBC 5 Urine WBC 8 Urine Squamous Epithelial Cells <1 Urine Bacteria MANY Urine Mucus FEW Microscopic Urinalysis Comment CULTURE INDICATED Date/Time Source Procedure Growth Status 01/30/18 06:31 Urine Random Urine Urine Culture Pending Received [facility] Medical Record Reviewed: Yes Interpretation(s) 28 presents with lower abdominal pain and vaginal bleeding. Beta hcg elevated at 130. Complex 2cm mass seen in the left adnexa on ultrasound. Images were reviewed with Dr. Vera and a clear adnexal mass could not be identified. Differential diagnoses includes early intrauterine , early ectopic , ruptured ovarian cyst, UTI, PID. Plan Impression -Minimal rebound tenderness on exam, patient is hemodynamically stable, early elevation in quantitative beta-hcg at 130, expected to double in the next 2-3 days. Too early to tell if this is a missed AB or ruptured ectopic . Plan -Recommend conservative management at home with bedrest and Tylenol for pain -Patient to return to the ED on Monday02/02/2018 for repeat quant hcg and repeat transvaginal ultrasound -If abdominal pain and bleeding persists and becomes worse, patient to present to the ED earlier -Further management will be determined at that time -Recommend treatment for suspected UTI SDW Dr. Vera Disposition: 01 DISCHARGE HOME Condition: Stable Scripts No Active Prescriptions or Reported Meds Patient Instructions: General Instructions Additional Instructions: Please provide patient with a copy of their lab work and studies at discharge* * Please follow up with your primary care doctor in 2-3 days Return to the ER if symptoms worsen or progress Return to the ER as needed Please have your HCG quant repeated in 48 hours Please call your pool cleaner first thing in the morning for earliest follow up Evie Murphy MD R2 Jan 30, 2018 11:10
== END 2018-01-30 11:38 | disposition home or self-care (01) ==
LOC: NEPC 02:36
DX: O20.0 Threatened abortion (principal); O26.891 Other specified pregnancy related conditions, first trimester; R10.32 Left lower quadrant pain; O34.81 Maternal care for other abnormalities of pelvic organs, first trimester; N83.202 Unspecified ovarian cyst, left side; O99.331 Smoking (tobacco) complicating pregnancy, first trimester; F17.210 Nicotine dependence, cigarettes, uncomplicated; Z3A.00 Weeks of gestation of pregnancy not specified
CPT/HCPCS: 76700; 76817; 80053; 81001; 83690; 84702; 84703; 85025; 85610; 85730; 86850; 86900; 86901; 87077; 87086; 87186; 96360; 96361; 99284; J7030

== ENCOUNTER 2018-02-02 07:53 | Emergency (ER) | payer SELFPAY ==
[~2018-02-02] VITALS: Ht 157.5 cm; Wt 75.0 kg
[2018-02-02 07:56] VITALS: BP 111/58; PULSE 77; RESP 18; TEMP 98.8; O2SAT 100
[2018-02-02 08:08] VITALS: BP 99/54; PULSE 91; RESP 18; O2SAT 99
[2018-02-02] MEDS ORDERED: IRON1TAB7 PO (08:13)
--- NOTE | 2018-02-02 08:37 | PD ---
HPI Chief Complaint: Related Problem Time Seen by Provider: 08:25 Travel History International Travel<30 days: No Contact w/Intl Traveler<30days: No Traveled to known affect area: No History of Present Illness HPI Patient presents to the emergency department for repeat beta hCG and ultrasound. She was seen a couple days ago for vaginal bleeding and was found to be . She reports that the bleeding has decreased as well as the abdominal pain, but she is going through 2 pads a day. No fever, chills, no foul-smelling discharge, no nausea, no vomiting, no dizziness, no weakness. Last sexual intercourse was on the and it was unprotected. States that her period came on January 23 and she has been bleeding since. [facility] Past Medical History Anemia: Yes Diminished Hearing: No Genitourinary: Yes (uti) Reproductive: Yes (ovarian cyst) Tetanus Vaccination: > 5 Years Influenza Vaccination: No ?: Unknown LMP: bleeding 2 days ago Menopausal: No : 7 Para: 6 Miscarriage: 0 : 1 Ectopic : No Ovarian Cysts: Yes (currently) Dilation and Curettage (D&C): No Tubal Ligation: No Past Surgical History Surgical History: No Previous Surgery Section: No Hysterectomy: No Social History Alcohol Use: No Tobacco Use: No Substance Use: No Allergies-Medications (Allergen,Severity, Reaction): Coded Allergies: No Known Allergies (Verified Adverse Reaction, Unknown, 02/02/18) Reported Meds & Prescriptions Reported Meds & Active Scripts Active Reported Nufera (Iron Combinations) 125-1-170 Tab 1 Tab PO DAILY Review of Systems Except as stated in HPI: all other systems reviewed are Neg Physical Exam Narrative GENERAL: No acute distress. SKIN: Focused skin assessment warm/dry. HEAD: Atraumatic. Normocephalic. EYES: Pupils equal and round. No scleral icterus. No injection or drainage. ENT: No nasal bleeding or discharge. Mucous membranes pink and moist. NECK: Trachea midline. No JVD. CARDIOVASCULAR: Regular rate and rhythm. No murmur appreciated. RESPIRATORY: No accessory muscle use. Clear to auscultation. Breath sounds equal bilaterally. GASTROINTESTINAL: Abdomen soft, non-tender, nondistended. Hepatic and splenic margins not palpable. MUSCULOSKELETAL: No obvious deformities. No clubbing. No cyanosis. No edema. NEUROLOGICAL: Awake and alert. No obvious cranial nerve deficits. Motor grossly within normal limits. Normal speech. PSYCHIATRIC: Appropriate mood and affect; insight and judgment normal. Pelvic: No active bleeding, cervical os open to fingertip Data Data Last Documented VS Vital Signs Date Time Temp Pulse Resp B/P (MAP) Pulse Ox O2 Delivery O2 Flow Rate FiO2 02/02/18 08:08 91 18 99/54 (69) 99 Room Air 02/02/18 07:56 98.8 Orders Orders Beta Hcg (Quant/Titer) (02/02/18 08:05) Complete Blood Count With Diff (02/02/18 08:34) Us Pelvis (Ques Pr/Ect)W Trans (02/02/18 ) Sodium Chlor 0.9% 1000 Ml Inj (Ns 1000 M (02/02/18 08:45) Ed Discharge Order (02/02/18 12:20) Labs Laboratory Tests Test 02/02/18 08:10 White Blood Count 5.1 TH/MM3 Red Blood Count 3.86 MIL/MM3 Hemoglobin 10.2 GM/DL Hematocrit 31.3 % Mean Corpuscular Volume 81.1 FL Mean Corpuscular Hemoglobin 26.6 PG Mean Corpuscular Hemoglobin Concent 32.8 % Red Cell Distribution Width 14.2 % Platelet Count 245 TH/MM3 Mean Platelet Volume 9.4 FL Neutrophils (%) (Auto) 36.0 % Lymphocytes (%) (Auto) 46.3 % Monocytes (%) (Auto) 13.1 % Eosinophils (%) (Auto) 4.3 % Basophils (%) (Auto) 0.3 % Neutrophils # (Auto) 1.8 TH/MM3 Lymphocytes # (Auto) 2.4 TH/MM3 Monocytes # (Auto) 0.7 TH/MM3 Eosinophils # (Auto) 0.2 TH/MM3 Basophils # (Auto) 0.0 TH/MM3 CBC Comment DIFF FINAL Differential Comment Human Chorionic Gonadotropin, Quant 122 MIU/ML MDM Medical Decision Making Medical Screen Exam Complete: Yes Emergency Medical Condition: Yes Interpretation(s) Labs: Slight decrease in hemoglobin and hematocrit, beta-hCG 122, which was 130 on January 30 U/S: FINDINGS: Uterus: There is a cystic structure seen involving the endometrium within the fundus. This measures 0.8 cm in diameter. It is somewhat irregularly shaped. No yolk sac or pole observed. Several simple nabothian cysts are noted. The largest measures 5 mm.. Right Ovary: Multiple simple cysts are seen throughout the right ovary. The largest measures 1.4 cm. No complex cyst or solid lesion observed. Left Ovary: There is a complex cyst associated with the left ovary. This measures 3.4 x 2.7 x 2.2 cm. It has scattered internal echoes. It is thick walled. Other: Simple free fluid seen within the cul-de-sac as well as adnexal structures bilaterally. CONCLUSION: 1. No definitive IUP observed. There is a cystic structure seen within the endometrial canal that was not present on the prior exam. It is irregularly shaped and I see no pole or yolk sac. I cannot completely exclude an early gestational sac. 2. Complex cyst involving the left ovary. Differential diagnostic considerations include hemorrhage into a corpus luteal cyst versus an ectopic. Consider short-term follow-up ultrasound. 3. Free fluid. Differential Diagnosis Ectopic, AB, IUP Narrative Course Patient presents to the emergency department for repeat beta hCG and ultrasound. Patient was placed on potline monitor and IV access was obtained. Ultrasound, beta-hCG, CBC, and 1 L IV normal saline ordered. Physician Communication Physician Communication [id number]: OB hospitalist paged.Dr. Vera-Come back in 1 week and repeat u/s and quant. Nothing in vagina, return for heavy bleeding or worsening pain. Diagnosis Primary Impression: Qualified Codes: Z34.90 - Encounter for supervision of normal , unspecified, unspecified trimester Patient Instructions: General Instructions, Miscarriage (ED) Additional Instructions: 1. Return to the ER in 1 week for repeat beta hCG and ultrasound. 2. Nothing in the vagina. 3. Return to the ER immediately for fever, worsening abdominal pain and vaginal bleeding, or for any new/worrisome/worsening symptoms. Disposition: 01 DISCHARGE HOME Condition: Stable Lis Honeycutt MD Feb 02, 2018 08:37
[2018-02-02] MEDS ORDERED: SODIUM CHLOR 0.9% 1000 ML INJ 1,000 ML IV ONE (08:45)
[2018-02-02 09:09] LABS: AUTOMATED NEUTROPHIL # 1.8 TH/MM3 (1.8-7.7); BASOPHIL % 0.3 % (0.0-2.0); EOSINOPHIL # 0.2 TH/MM3 (0-0.4); EOSINOPHIL % 4.3 % (0.0-4.0); HEMATOCRIT 31.3 % (35.0-46.0); HEMOGLOBIN 10.2 GM/DL (11.6-15.3); LYMPH % 46.3 % (9.0-44.0); LYMPHOCYTE # 2.4 TH/MM3 (1.0-4.8); MEAN CELL VOLUME 81.1 FL (80.0-100.0); MEAN CORPUSCULAR HEMOGLOBIN 26.6 PG (27.0-34.0); MEAN CORPUSCULAR HGB CONC 32.8 % (32.0-36.0); MEAN PLATELET VOLUME 9.4 FL (7.0-11.0); MONO % 13.1 % (0.0-8.0); MONOCYTE # 0.7 TH/MM3 (0-0.9); PLATELET COUNT 245 TH/MM3 (150-450); RED BLOOD COUNT 3.86 MIL/MM3 (4.00-5.30); RED CELL DISTRIBUTION WIDTH 14.2 % (11.6-17.2); WHITE BLOOD COUNT 5.1 TH/MM3 (4.0-11.0)
--- NOTE | 2018-02-02 10:05 | RADRPT ---
EXAM DATE: 02/02/2018 9:42 AM EDT AGE/SEX: 28 years / Female INDICATIONS: Pelvic pain. CLINICAL DATA: This is the patient's subsequent encounter. Patient reports that signs and symptoms h ave been present for 2 weeks and indicates a pain score of 2/10. MEDICAL/SURGICAL HISTORY: . . Anemia. Ovarian cysts. UTI. None. [place] [facility] [place] PREG/ECTOPIC[place] W/TRANSVAG, 01/30/2018. . MEASUREMENTS: Uterus:__7.6 x 6.6 x 4.7 cm Endometrial Stripe:__6 mm Right Ovary:__ 3.5 x 2.5 x 2.3 cm Left Ovary:__ 3.7 x 2.6 x 2.1 cm FINDINGS: Uterus: There is a cystic structure seen involving the endometrium within the fundus. This measures 0.8 cm in diameter. It is somewhat irregularly shaped. No yolk sac or pole observed. Several si mple nabothian cysts are noted. The largest measures 5 mm.. Right Ovary: Multiple simple cysts are seen throughout the right ovary. The largest measures 1.4 cm. No complex cyst or solid lesion observed. Left Ovary: There is a complex cyst associated with the left ovary. This measures 3.4 x 2.7 x 2.2 cm . It has scattered internal echoes. It is thick walled. Other: Simple free fluid seen within the cul-de-sac as well as adnexal structures bilaterally. CONCLUSION: 1. No definitive IUP observed. There is a cystic structure seen within the endometrial canal that wa s not present on the prior exam. It is irregularly shaped and I see no pole or yolk sac. I daniella ot completely exclude an early gestational sac. 2. Complex cyst involving the left ovary. Differential diagnostic considerations include hemorrhage into a corpus luteal cyst versus an ectopic. Consider short-term follow-up ultrasound. 3. Free fluid. Electronically signed by: Jigar Myers MD 02/02/2018 10:03 AM EDT
== END 2018-02-02 12:59 | disposition home or self-care (01) ==
LOC: NEPC 07:53
DX: O20.9 Hemorrhage in early pregnancy, unspecified (principal); Z3A.00 Weeks of gestation of pregnancy not specified
CPT/HCPCS: 76700; 76817; 84702; 85025; 96360; 96361; 99284; J7030